=== PATIENT | female | born 1950 | race Caucasian/White ===

== ENCOUNTER 2019-01-23 09:06 | Emergency (ER) | payer MEDICARE ==
[~2019-01-23] VITALS: Ht 170.2 cm; Wt 86.2 kg
--- OUTSIDE RECORDS SUMMARY | 2019-01-23 09:09 | XMS REPORT ---
[facility] Address Unknown Phone Unavailable Care Team Providers Care Meal Packer Name Role Phone Unavailable Unavailable Payers Payer Name Policy Type Policy Number Effective Date Expiration Date Problems This patient has no known problems. Allergies, Adverse Reactions, Alerts This patient has no known allergies or adverse reactions. Medications This patient has no known medications. Results Test Description Test Time Test Comments Text Results Atomic Results Result Comments BREAST ULTRASOUND LEFT 2018-12-14 09:04:42 - BREAST ULTRASOUND LEFTULTRASOUND OF LEFT BREAST: 12/14/2018CLINICAL: Left Breast Cancer 2018. Comparison is made to exam dated 04/04/2018 ultrasound - [facility]-. Color flow and real-time ultrasound of the left breast were performed. Greene scale images of the real-time examination were reviewed. The breast tissue has scattered fibroglandular background echotexture. Survey ultrasound demonstrates no suspicious sonographic abnormality. Postsurgical changes with postsurgical scar from lumpectomy at 12 o'clock, 2 cm from the nipple. No seroma or abscess was seen. No axillary lymphadenopathy was seen.IMPRESSION: BENIGN - FOLLOW-UP RECOMMENDEDThere is no sonographic evidence of malignancy. Return to screening mammography which is due in April 2019. Clinical follow up is also recommended, and further management of palpable/focal abnormalities should be based on clinical examination.Mark Heath M.D. ss/:12/14/2018 09:04:42 Qa Specialist: Ivy Hines , [facility]-FWletter sent: BIRADS 1- 2 Normal Ultrasound BI-RADS: 2 Benign
== END 2019-01-23 11:12 | disposition home or self-care (01) ==
LOC: ER 09:06
DX: S29.012A Strain of muscle and tendon of back wall of thorax, initial encounter (principal); K21.9 Gastro-esophageal reflux disease without esophagitis; K44.9 Diaphragmatic hernia without obstruction or gangrene; R00.1 Bradycardia, unspecified; I45.10 Unspecified right bundle-branch block; Z85.3 Personal history of malignant neoplasm of breast; Z87.891 Personal history of nicotine dependence; X58.XXXA Exposure to other specified factors, initial encounter
CPT/HCPCS: 93005; 99283

== ENCOUNTER → 2019-12-16 | Outpatient (CLI) | payer MEDICARE ==
--- NOTE | 2019-12-16 11:00 | Diagnostic Imaging Report ---
MRI of the right hip without contrast. History: Hip pain. Decreased range of motion. Pain not responding to conservative management. Technique: Multiplanar multisequence MRI of the hip without contrast. Comparison: None Findings: The urinary bladder and remainder of the visualized pelvic structures are grossly unremarkable. No acute fracture, dislocation or evidence of avascular necrosis. 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 Mild underlying bone marrow edema. Degenerative type tearing of the labrum. Moderate sized right hip joint effusion and synovitis thought to be reactive. The remainder of the visualized ligaments and tendons about the hip are intact. Mild soft tissue edema adjacent to the right hip greater trochanter could be due to mild trochanteric bursitis. The visualized muscles are normal in size, signal intensity and morphology. The visualized neurovascular bundles are intact. 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 Mild underlying bone marrow edema. Degenerative type tearing of the labrum. Moderate sized right hip joint effusion and synovitis thought to be reactive. Mild soft tissue edema adjacent to the right hip greater trochanter could be due to mild trochanteric bursitis. Signed by: Dr. Jose Armando Graham M.D. on 12/16/2019 10:58 AM
== END ==
LOC: MRI 08:23
PROVIDERS: ATTEND Family Medicine
DX: M25.551 Pain in right hip (principal)

== ENCOUNTER 2020-01-13 08:59 | Outpatient (RCR) | payer MEDICARE | END 2020-01-28 | LOC: PT 08:59 | PROVIDERS: ATTEND Specialist | DX: M25.551 Pain in right hip (principal) ==

== ENCOUNTER 2020-03-06 09:04 | Outpatient (RCR) | payer MEDICARE | END 2020-03-29 | LOC: PT 09:04 | PROVIDERS: ATTEND Specialist | DX: M16.11 Unilateral primary osteoarthritis, right hip (principal); M25.551 Pain in right hip; M25.651 Stiffness of right hip, not elsewhere classified; M62.81 Muscle weakness (generalized); R26.2 Difficulty in walking, not elsewhere classified ==

== ENCOUNTER → 2022-07-19 | Day surgery (SDC) | payer MEDICARE ==
[~2022-07-19] MED LIST: ARIMIDEX1 MG PO; ATORVASTATIN CA20 MG PO; CALCIUM PO; FENTANYL CITRATE/PF 100MCG/2 ML INJ ONE; MIDAZOLAM HCL 2 MG/2 ML VIAL ONE; OR PHACO EYE KIT ONE; PAROXETINE HCL20 MG PO; PREOP PHACO EYE KIT ONE; PROTONIX20 MG PO; ZINC PO
[2022-07-19 15:40] VITALS: BP 132/67
== END | disposition home or self-care (01) ==
LOC: OR 11:23
PROVIDERS: ATTEND Ophthalmology
DX: H25.12 Age-related nuclear cataract, left eye (principal); C50.912 Malignant neoplasm of unspecified site of left female breast; I69.398 Other sequelae of cerebral infarction; H54.61 Unqualified visual loss, right eye, normal vision left eye; E78.5 Hyperlipidemia, unspecified; K21.9 Gastro-esophageal reflux disease without esophagitis; K44.9 Diaphragmatic hernia without obstruction or gangrene; F32.A Depression, unspecified; Z79.890 Hormone replacement therapy; Z79.899 Other long term (current) drug therapy
CPT/HCPCS: 66984; J2250; J3010; V2632

== ENCOUNTER → 2022-08-16 | Day surgery (SDC) | payer MEDICARE ==
[2022-08-12 09:45] LABS: BASOPHILS % 0.7 % (0.0-1.0); EOSINOPHILS # (AUTO) 0.1 (0.0-0.4); EOSINOPHILS % 2.2 % (0.0-6.0); HEMATOCRIT 40.5 % (34.2-44.1); HEMOGLOBIN 12.3 g/dL (12.0-16.0); LYMPHOCYTES # (AUTO) 1.3 (1.0-3.2); LYMPHOCYTES % 27.7 % (18.0-39.1); MEAN CORPUSCULAR HEMOGLOBIN 27.8 pg (28-32); MEAN CORPUSCULAR HGB CONC 30.4 g/dL (31-35); MEAN CORPUSCULAR VOLUME 91.6 fL (81-99); MONOCYTES # (AUTO) 0.4 (0.2-0.8); MONOCYTES % 7.9 % (4.4-11.3); NEUTROPHILS # (AUTO) 2.8 (2.1-6.9); NEUTROPHILS % 61.3 % (38.7-80.0); PLATELET COUNT 211 x10e3/uL (140-360); RED BLOOD COUNT 4.42 x10e6/uL (3.6-5.1); RED CELL DISTRIBUTION WIDTH 13.8 % (11.7-14.4)
[~2022-08-16] MED LIST changes: -FENTANYL CITRATE/PF 100MCG/2 ML INJ ONE; -MIDAZOLAM HCL 2 MG/2 ML VIAL ONE
[2022-08-16 15:05] VITALS: BP 140/64
== END | disposition home or self-care (01) ==
LOC: OR 11:44
PROVIDERS: ATTEND Ophthalmology
DX: H25.11 Age-related nuclear cataract, right eye (principal); H54.61 Unqualified visual loss, right eye, normal vision left eye; E78.5 Hyperlipidemia, unspecified; K21.9 Gastro-esophageal reflux disease without esophagitis; K44.9 Diaphragmatic hernia without obstruction or gangrene; Z01.812 Encounter for preprocedural laboratory examination; Z79.899 Other long term (current) drug therapy; Z86.73 Personal history of transient ischemic attack (TIA), and cerebral infarction without residual deficits
CPT/HCPCS: 36415; 85025